=== PATIENT | male | born 1985 | race Caucasian/White ===

== ENCOUNTER 2017-03-04 02:43 | Observation (INO) | payer OTHER ==
[2017-03-04 03:17] LABS: BASO % 0.5 % (0-2); EOS % 1.3 % (0-7); EOSINOPHIL ABSOLUTE COUNT 0.1 tho/cmm (0.0-0.7); HCT-HEMATOCRIT 44.4 % (36.0-53.5); HGB-HEMOGLOBIN 15.8 gm/dl (13.5-17.0); IMMATURE GRANULOCYTES ABSOLUTE 0.01 tho/cmm (0-0.03); IMMATURE GRANULOCYTES PERCENT 0.3 % (0-0.3); LYMPH % 43.8 % (20-45); LYMPH ABSOLUTE COUNT 1.7 tho/cmm (0.8-4.5); MCHC MEAN CORPUSCULAR HGB CONC 35.6 % (32.0-36.0); MCV (MEAN CELL VOLUME) 95.5 fl (82.0-96.0); MONO % 4.4 % (0-12); MONOCYTE ABSOLUTE COUNT 0.2 tho/cmm (0.0-1.2); NEUTROPHIL ABSOLUTE COUNT 1.9 tho/cmm (1.6-8.0); NEUTROPHIL-AUTOMATED 1.9 tho/cmm (1.6-8.0); NEUTROPHILS % 49.7 % (40-80); PLATELET COUNT 137 tho/cmm (150-450); RED BLOOD COUNT 4.65 mil/cmm (4.40-5.70); RED CELL DISTRIBUTION WIDTH 12.7 % (12.4-16.4); WHITE BLOOD COUNT 3.9 tho/cmm (4.0-10.0)
[2017-03-04 03:23] LABS: INR 0.9 INR (0.9-1.1); PROTHROMBIN TIME 10.2 SECONDS (9.0-13.6)
[2017-03-04 03:36] LABS: ALBUMIN 4.3 g/dl (3.5-5.0); ALKALINE PHOSPHATASE 75 U/L (33-138); BILIRUBIN,TOTAL 0.5 mg/dl (0.0-1.5); BLOOD UREA NITROGEN 11 mg/dl (6-24); CALCIUM 8.9 mg/dl (8.5-10.5); CARBON DIOXIDE-VENOUS 20 mmol/L (22-32); CHLORIDE 95 mmol/l (96-110); CREATININE 1.13 mg/dl (0.60-1.30); GLUCOSE 225 mg/dL (70-110); LIPASE 141 U/L (73-393); SODIUM 133 mmol/L (135-145); eGFR VALUE FOR BLACK >90 mL/Min
[2017-03-04 03:39] LABS: ALT/SGPT 203 U/L (12-78)
[2017-03-04 03:50] LABS: ANION GAP 22 mmol/L (0-20); AST/SGOT 227 U/L (10-40)
[2017-03-04 04:36] LABS: URINE LEUKOCYTE ESTERASE NEGATIVE (NEG); URINE PROTEIN LARGE (NEG)
[2017-03-04 04:47] LABS: URINE APPEARANCE CLEAR; URINE BILIRUBIN NEGATIVE (NEG); URINE BLOOD MODERATE (NEG); URINE COLOR YELLOW; URINE GLUCOSE (UA) LARGE (NEG); URINE KETONE LARGE (NEG); URINE NITRITE NEGATIVE (NEG)
[2017-03-04 04:50] LABS: URINE EPITHELIAL CELLS RARE /[HPF] (0-10); URINE RBC 0-3 /[HPF] (0-5); URINE WBC 0 /[HPF] (0-5)
[2017-03-04] MEDS ORDERED: ZANTAC150 M1 PO (07:11)
[2017-03-04 08:22] LABS: MAGNESIUM 1.6 mg/dl (1.8-2.6)
[2017-03-04 08:28] LABS: C-REACTIVE PROTEIN <0.3 mg/dl (0-0.9)
[2017-03-04 13:55] LABS: MAGNESIUM 1.5 mg/dl (1.8-2.6)
[2017-03-04 13:57] LABS: C-REACTIVE PROTEIN <0.3 mg/dl (0-0.9)
[2017-03-05 03:07] LABS: EOS % 4.2 % (0-7); EOSINOPHIL ABSOLUTE COUNT 0.1 tho/cmm (0.0-0.7); HCT-HEMATOCRIT 39.5 % (36.0-53.5); HGB-HEMOGLOBIN 13.9 gm/dl (13.5-17.0); LYMPH % 33.7 % (20-45); MCH (MEAN CORPUSCULAR HGB) 33.8 pg (28.0-32.0); MCHC MEAN CORPUSCULAR HGB CONC 35.2 % (32.0-36.0); MCV (MEAN CELL VOLUME) 96.1 fl (82.0-96.0); MEAN PLATELET VOLUME 10.2 cmc (9.4-12.4); MONO % 7.4 % (0-12); MONOCYTE ABSOLUTE COUNT 0.2 tho/cmm (0.0-1.2); NEUTROPHIL ABSOLUTE COUNT 1.6 tho/cmm (1.6-8.0); NEUTROPHIL-AUTOMATED 1.6 tho/cmm (1.6-8.0); NEUTROPHILS % 54.7 % (40-80); PLATELET COUNT 80 tho/cmm (150-450); RED BLOOD COUNT 4.11 mil/cmm (4.40-5.70); RED CELL DISTRIBUTION WIDTH 12.5 % (12.4-16.4); WHITE BLOOD COUNT 2.9 tho/cmm (4.0-10.0)
[2017-03-05 03:19] LABS: ALBUMIN 3.4 g/dl (3.5-5.0); ALKALINE PHOSPHATASE 57 U/L (33-138); ALT/SGPT 161 U/L (12-78); BILIRUBIN,DIRECT 0.1 mg/dl (0.0-0.3); BILIRUBIN,INDIRECT 0.5 mg/dL (0.0-1.0); BILIRUBIN,TOTAL 0.6 mg/dl (0.0-1.5); BLOOD UREA NITROGEN 10 mg/dl (6-24); CALCIUM 8.3 mg/dl (8.5-10.5); CARBON DIOXIDE-VENOUS 28 mmol/L (22-32); CHLORIDE 98 mmol/l (96-110); GLUCOSE 123 mg/dL (70-110); SODIUM 136 mmol/L (135-145); eGFR VALUE FOR BLACK >90 mL/Min
[2017-03-05 03:25] LABS: ANION GAP 14 mmol/L (0-20); AST/SGOT 171 U/L (10-40); POTASSIUM 4.1 mmol/L (3.7-5.1)
[2017-03-05] MEDS ORDERED: MULTIVITAMINS1 EAC6 PO (11:13)
[2017-03-05] MEDS ORDERED: CARAFATE1 GM/10 M1 PO (11:14)
[2017-03-05] MEDS ORDERED: PROTONIX40 M2 PO (11:14)
== END 2017-03-05 11:50 ==
LOC: EDMED 02:43 → EMR2 07:02 → 5WD 09:10
PROVIDERS: Emergency Medicine; Internal Medicine; Registered Nurse; ADMIT Hospitalist
PROC: 0DJ08ZZ Inspection of Upper Intestinal Tract, Via Natural or Artificial Opening Endoscopic (ICD-10-PCS; principal; 2017-03-04)
DX: K29.20 Alcoholic gastritis without bleeding (principal); K20.8 Other esophagitis; D72.819 Decreased white blood cell count, unspecified; D69.6 Thrombocytopenia, unspecified; F10.10 Alcohol abuse, uncomplicated; K21.9 Gastro-esophageal reflux disease without esophagitis; R73.9 Hyperglycemia, unspecified; R55 Syncope and collapse; R79.89 Other specified abnormal findings of blood chemistry; K76.0 Fatty (change of) liver, not elsewhere classified; F17.210 Nicotine dependence, cigarettes, uncomplicated; E87.1 Hypo-osmolality and hyponatremia; R74.0 Nonspecific elevation of levels of transaminase and lactic acid dehydrogenase [LDH]; Z79.899 Other long term (current) drug therapy; Z88.2 Allergy status to sulfonamides; Z98.890 Other specified postprocedural states; W18.39XA Other fall on same level, initial encounter; Y90.7 Blood alcohol level of 200-239 mg/100 ml
CPT/HCPCS: C9113; G0378; G0480; J2060; J2270; J2405; J3475; J7030